=== PATIENT | male | born 1955 | race Caucasian/White ===

== ENCOUNTER → 2016-04-14 | Outpatient (CLI) | payer BC ==
[~2016-04-14] MED LIST: ALEVE220 M2 PO; AMLODIPINE-BEN1 EAC5 PO; DIABETA5 MG PO; FORTAMET500 M1 PO; GLYBURIDE2.5 MG PO; HYDROCHLOROTHIA25 MG PO; METOPROLOL SUC100 MG PO; NAPROXEN500 MG PO; PERCOCET 5/31 TABLET PO; TYLENOL EXTRA500 MG PO
== END | disposition home or self-care (01) ==
LOC: JMC/R 08:01
DX: Z51.0 Encounter for antineoplastic radiation therapy (principal); C61 Malignant neoplasm of prostate
CPT/HCPCS: 76873

== ENCOUNTER 2016-04-22 08:36 | Day surgery (SDC) | payer BC ==
[~2016-04-22] VITALS: Ht 180.3 cm; Wt 117.0 kg
[~2016-04-22 08:36] MED LIST changes: -ALEVE220 M2 PO
[2016-04-22] MEDS ORDERED: ALEVE220 M2 PO (09:27)
[2016-04-22 09:31] VITALS: BP 102/61
[2016-04-22 09:34] LABS: POINT-OF-CARE METER ID UU14174212
[2016-04-22 13:42] LABS: POINT-OF-CARE METER ID UU13113675
[2016-04-22 14:15] VITALS: BP 128/68
[2016-04-22 15:40] VITALS: BP 108/53
== END 2016-04-22 16:20 | disposition home or self-care (01) ==
LOC: SDC 08:36
PROVIDERS: Radiology Radiation Oncology
PROC: 0VH031Z Insertion of Radioactive Element into Prostate, Percutaneous Approach (ICD-10-PCS; principal; 2016-04-22)
DX: C61 Malignant neoplasm of prostate (principal); E11.9 Type 2 diabetes mellitus without complications; I10 Essential (primary) hypertension; M10.9 Gout, unspecified
CPT/HCPCS: 76965; 77336; 77778; 82948; C2638; J0330; J0744; J1100; J1170; J2250; J2405; J2710; J3010; J7120

== ENCOUNTER → 2016-05-25 | Outpatient (CLI) | payer BC ==
[~2016-05-25] MED LIST changes: +ALEVE220 M2 PO
== END | disposition home or self-care (01) ==
LOC: JMC/R 08:37
DX: Z48.3 Aftercare following surgery for neoplasm (principal); C61 Malignant neoplasm of prostate
CPT/HCPCS: 77290; 77295